=== PATIENT | male | born 2000 ===

== ENCOUNTER 2023-06-17 07:24 | Day surgery (SDC) | payer OTHER ==
[~2023-06-17] VITALS: Ht 168.9 cm; Wt 53.5 kg
[2023-06-17] MEDS ORDERED: OXYC1TAB9 PO (13:34)
== END 2023-06-17 18:50 | disposition home or self-care (01) ==
LOC: CIR.AMB 07:24
PROVIDERS: ATTEND Surgery
DX: K60.3 Anal fistula (principal); K60.2 Anal fissure, unspecified; K62.89 Other specified diseases of anus and rectum; Z20.822 Contact with and (suspected) exposure to COVID-19